=== PATIENT | male | born 1990 | race African-American/Black ===

== ENCOUNTER 2017-12-23 13:19 | Emergency (ER) | payer BC ==
[~2017-12-23] VITALS: Ht 177.8 cm; Wt 82.0 kg
[2017-12-23 13:27] VITALS: BP 123/78
== END 2017-12-23 14:46 | disposition home or self-care (01) ==
LOC: ER 14:42
DX: S56.911A Strain of unspecified muscles, fascia and tendons at forearm level, right arm, initial encounter (principal); X58.XXXA Exposure to other specified factors, initial encounter; Y93.89 Activity, other specified; Y92.89 Other specified places as the place of occurrence of the external cause; Y99.8 Other external cause status
CPT/HCPCS: 99282